=== PATIENT | male | born 1945 | race Two or more races ===

== ENCOUNTER 2017-08-18 08:48 | Emergency (ER) | payer OTHER ==
[~2017-08-18] VITALS: Ht 172.7 cm; Wt 134.7 kg
[~2017-08-18 08:48] MED LIST: LEVAQUIN500 MG PO; LEVAQUIN750 MG PO; MEDROLPACK PO; TUSSI PRES-B L120 M1 PO; ULTRACET PO
[2017-08-18] MEDS ORDERED: AVAPRO300 MG PO (09:02)
[2017-08-18] MEDS ORDERED: CALAN SR120 MG (09:02)
[2017-08-18] MEDS ORDERED: COREG CR10 MG (09:02)
[2017-08-18] MEDS ORDERED: COUMADIN10 MG PO (09:03)
[2017-08-18] MEDS ORDERED: HYDROCHLOROTHIA25 MG PO (09:03)
[2017-08-18] MEDS ORDERED: GLIPIZIDE ER5 MG PO (09:04)
[2017-08-18] MEDS ORDERED: LEVAQUIN750 MG PO (14:15)
== END 2017-08-18 14:32 | disposition home or self-care (01) ==
LOC: ER 08:48
DX: N39.0 Urinary tract infection, site not specified (principal); B96.29 Other Escherichia coli [E. coli] as the cause of diseases classified elsewhere

== ENCOUNTER 2017-10-02 12:43 | Outpatient (CLI) | payer OTHER ==
[~2017-10-02 12:43] MED LIST changes: +AVAPRO300 MG PO; +CALAN SR120 MG; +COREG CR10 MG; +COUMADIN10 MG PO; +GLIPIZIDE ER5 MG PO; +HYDROCHLOROTHIA25 MG PO
== END 2017-10-02 12:50 | disposition home or self-care (01) ==
LOC: NUCLEAR 12:43
DX: I87.2 Venous insufficiency (chronic) (peripheral) (principal)

== ENCOUNTER 2017-11-21 11:18 | Emergency (ER) | payer OTHER ==
[~2017-11-21] VITALS: Ht 172.7 cm; Wt 88.5 kg
[2017-11-21] MEDS ORDERED: CELEBREX100 MG PO (14:50)
== END 2017-11-21 15:49 | disposition home or self-care (01) ==
LOC: ER 11:18
DX: M25.561 Pain in right knee (principal)

== ENCOUNTER 2017-11-22 11:01 | Outpatient (CLI) | payer OTHER ==
[~2017-11-22 11:01] MED LIST changes: +CELEBREX100 MG PO
== END 2017-11-22 11:04 | disposition home or self-care (01) ==
LOC: SONOGRAMA 11:01
DX: M25.561 Pain in right knee (principal)

== ENCOUNTER 2018-03-06 08:53 | Emergency (ER) | payer OTHER ==
[~2018-03-06] VITALS: Ht 172.7 cm; Wt 127.0 kg
[2018-03-06] MEDS ORDERED: XARELTO15 MG PO (09:02)
[2018-03-06] MEDS ORDERED: TAMS0.4C PO (09:03)
== END 2018-03-06 11:47 | disposition home or self-care (01) ==
LOC: ER 08:53
DX: B34.9 Viral infection, unspecified (principal); J11.1 Influenza due to unidentified influenza virus with other respiratory manifestations

== ENCOUNTER 2019-06-14 12:46 | Emergency (ER) | payer OTHER ==
[~2019-06-14] VITALS: Ht 172.7 cm; Wt 118.8 kg
[~2019-06-14 12:46] MED LIST changes: +TAMS0.4C PO; +XARELTO15 MG PO
[2019-06-14] MEDS ORDERED: COUMADIN6 MG PO (13:05)
[2019-06-14] MEDS ORDERED: CARVEDILOL6.25 MG (13:06)
[2019-06-14] MEDS ORDERED: LEVAQUIN750 MG PO (16:30)
[2019-06-14] MEDS ORDERED: TUSNEL LIQUID178 ML PO (16:30)
[2019-06-14] MEDS ORDERED: DOLOGEN CAPLET1 EACH PO (16:31)
== END 2019-06-14 17:12 | disposition home or self-care (01) ==
LOC: ER 12:46
DX: J06.9 Acute upper respiratory infection, unspecified (principal); R53.81 Other malaise